=== PATIENT | male | born 1990 | race Caucasian/White ===

== ENCOUNTER 2017-06-24 15:15 | Emergency (ER) | payer BC ==
--- NOTE | 2017-06-24 15:25 | UC ---
Throat Pain/Nasal Waldemar HPI - HPI Summary HPI Summary: 26 year old male presents with complains of body and joint aches for over 1 week. - History of Current Complaint Stated Complaint: BODY ACHES Time Seen by Provider: 06/24/17 15:24 Hx Obtained From: Patient Onset/Duration: Lasting Days Severity: Moderate Pain Scale Used: 0-10 Numeric - 5 - Allergies/Home Medications Allergies/Adverse Reactions: Allergies Allergy/AdvReac Type Severity Reaction Status Date / Time No Known Allergies Allergy Verified 06/24/17 15:27 Home Medications: Home Medications NK [No Home Medications Reported] 06/24/17 [History Confirmed 06/24/17] PMH/Surg Hx/FS Hx/Imm Hx Previously Healthy: Yes - Surgical History Surgical History: None - Family History Known Family History: Positive: Unknown - Social History Alcohol Use: None Substance Use Type: None Smoking Status (MU): Never Smoked Tobacco Have You Smoked in the Last Year: No Review of Systems Constitutional: Fever, Chills, Fatigue Skin: Negative Eyes: Negative ENT: Negative Respiratory: Negative Cardiovascular: Negative Gastrointestinal: Negative Genitourinary: Negative Motor: Negative Neurovascular: Negative Musculoskeletal: Myalgia Neurological: Negative Psychological: Negative All Other Systems Reviewed And Are Negative: Yes Physical Exam Triage Information Reviewed: Yes Vital Signs Reviewed: Yes Eye Exam: Normal ENT Exam: Normal Dental Exam: Normal Neck exam: Normal Neck: Positive: 1 Respiratory Exam: Normal Cardiovascular Exam: Normal Abdominal Exam: Normal Musculoskeletal Exam: Normal Neurological Exam: Normal Psychological Exam: Normal Skin Exam: Normal Throat Pain/Nasal Course/Dx - Differential Dx/Diagnosis Provider Diagnoses: body aches. joint pain Discharge - Discharge Plan Condition: Stable Disposition: HOME Referrals: Wilner Marcum DO [Primary Care Provider] -
[2017-06-24 15:27] VITALS: BP 135/82
[2017-06-24 18:56] LABS: Hematocrit 44 % (42-52); Hemoglobin 14.9 g/dl (14.0-18.0); Mean Corpuscular HGB Conc 34 g/dl (31-36); Mean Corpuscular Hemoglobin 31 pg (27-31); Mean Corpuscular Volume 92 fL (80-94); Mean Platelet Volume 10 um3 (7.4-10.4); Red Blood Count 4.79 10^6/ul (4.0-5.4); Red Cell Distribution Width 13 % (10.5-15); White Blood Count 6.2 10^3/ul (3.5-10.8)
[2017-06-24 19:18] LABS: Albumin 4.6 g/dL (3.2-5.2); BUN/Creatinine Ratio 11.5 (8-20); Calcium 9.4 mg/dL (8.6-10.3); EGFR African American 92.3 (>60); EGFR Non-African American 71.8 (>60); Globulin 2.6 g/dL (2-4); Potassium 4.2 mmol/L (3.5-5.0); Total Bilirubin 0.6 mg/dL (0.2-1.0); Total Protein 7.2 g/dL (6.4-8.9)
== END 2017-06-24 16:28 | disposition home or self-care (01) ==
LOC: UCEAST 15:15
DX: M79.1 Myalgia (principal); M25.50 Pain in unspecified joint; R50.9 Fever, unspecified; R53.83 Other fatigue
CPT/HCPCS: 36415; 80053; 85025; 86618; 87502; 99211; G0463